=== PATIENT | male | born 1980 ===

== ENCOUNTER 2018-01-24 14:14 | Emergency (ER) | payer OTHER ==
[2018-01-24 14:28] VITALS: RESP 20
[2018-01-24] MEDS ORDERED: DiphenhydrAMINE 50 mg/ml Inj IVP STA (15:16)
[2018-01-24] MEDS ORDERED: DiphenhydrAMINE 50 mg/ml Inj ONE (15:41)
[2018-01-24 15:42] LABS: BASO # 0.1 K/uL (0.0-0.2); EOS # 0.1 K/uL (0.0-0.7); EOS % 1.3 % (0.0-4.0); HEMOGLOBIN 13.7 g/dL (12.0-18.0); LYMPH # 2.2 K/uL (1.0-4.3); LYMPH % 27.7 % (20.0-40.0); MEAN CELL VOLUME 88.1 fL (80.0-94.0); MEAN CORPUSCULAR HEMOGLOBIN 29.9 pg (27.0-31.0); MEAN PLATELET VOLUME 8.3 fL (7.2-11.7); MONO # 0.8 K/uL (0.0-0.8); MONO % 10.4 % (0.0-10.0); NEUT # 4.7 K/uL (1.8-7.0); NEUT % 59.6 % (50.0-75.0); NRBC % 0.1 % (0.0-2.0); RBC 4.58 Mil/uL (4.40-5.90); RED CELL DISTRIBUTION WIDTH 13.6 % (11.5-14.5)
[2018-01-24 15:55] LABS: ALB/GLOB RATIO 1.4 (1.0-2.1); ALBUMIN 4.3 g/dL (3.5-5.0); ALT/SGPT 37 U/L (21-72); AST/SGOT 34 U/L (17-59); BLOOD UREA NITROGEN 12 mg/dL (9-20); CALCIUM 9.7 mg/dl (8.6-10.4); GFR NON-AFRICAN AMERICAN > 60
--- NOTE | 2018-01-24 16:04 | CT ---
Date of service: 01/24/2018 PROCEDURE: CT HEAD WITHOUT CONTRAST. HISTORY: head injury 1 week ago, vomiting, r/o bleed COMPARISON: None available. TECHNIQUE: Axial computed tomography images were obtained through the head/brain without intravenous contrast. Radiation dose: Total exam DLP = 989.98 mGy-cm. This CT exam was performed using one or more of the following dose reduction techniques: Automated exposure control, adjustment of the mA and/or kV according to patient size, and/or use of iterative reconstruction technique. FINDINGS: HEMORRHAGE: No intracranial hemorrhage. BRAIN: No mass effect or edema. No atrophy or chronic microvascular ischemic changes. VENTRICLES: Unremarkable. No hydrocephalus. CALVARIUM: Unremarkable. PARANASAL SINUSES: Unremarkable as visualized. No significant inflammatory changes. MASTOID AIR CELLS: Unremarkable as visualized. No inflammatory changes. OTHER FINDINGS: None. IMPRESSION: Normal CT of the Head. No intracranial hemorrhage.
[2018-01-24 17:01] VITALS: BP 112/72; PULSE 75; TEMP 98.6; O2SAT 100
--- NOTE | 2018-01-24 17:12 | C.PDOC ---
History Of Present Illness 37 y/o male presents to the ED for evaluation of head injury. Patient states that a heavy 2x4 fell onto the right side of his head 1 week ago. He currently complains of a headache that began after the fall. Reports the headache has persisted, prompting him to come in for evaluation. Patient also reports associated nausea, with 1 episode of vomiting. Otherwise denies any LOC, dizziness, visual changes, chest pain, SOB, numbness, tingling, or extremity weakness. No other injuries were sustained. - HPI Time Seen by Provider: 01/24/18 14:45 Chief Complaint (Nursing): Trauma History Per: Patient History/Exam Limitations: no limitations Injury Occurred (Timing): Days Ago: (7) Location Of Injury: Right: Head Past Medical History Reviewed: Historical Data, Nursing Documentation, Vital Signs Vital Signs: Last Vital Signs Temp 98.6 F 01/24/18 17:00 Pulse 75 01/24/18 17:00 Resp 20 01/24/18 17:00 BP 112/72 01/24/18 17:00 Pulse Ox 100 01/24/18 18:33 - Medical History PMH: No Chronic Diseases Surgical History: No Surg Hx Family History: States: No Known Family Hx - Social History Hx Tobacco Use: No Hx Alcohol Use: No Hx Substance Use: No - Immunization History Hx Tetanus Toxoid Vaccination: Yes Hx Influenza Vaccination: No Hx Pneumococcal Vaccination: No Review Of Systems Except As Marked, All Systems Reviewed And Found Negative. Constitutional: Negative for: Fever, Chills Eyes: Negative for: Vision Change Cardiovascular: Negative for: Chest Pain Respiratory: Negative for: Shortness of Breath Gastrointestinal: Positive for: Nausea, Vomiting. Negative for: Abdominal Pain Musculoskeletal: Negative for: Neck Pain, Back Pain Skin: Negative for: Lesions Neurological: Positive for: Headache. Negative for: Weakness, Numbness, Incoordination, Change in Speech, Confusion, Dizziness Physical Exam - Physical Exam Appears: Non-toxic, No Acute Distress Skin: Normal Color, Warm, Dry Head: Normacephalic, Swelling (small area of swelling and tenderness to the right parietal scalp), No Laceration Eye(s): bilateral: Normal Inspection (no nystagmus), PERRL, EOMI Ear(s): Bilateral: Normal Nose: Normal Oral Mucosa: Moist Neck: Normal ROM, Supple Chest: Symmetrical Cardiovascular: Rhythm Regular, No Murmur Respiratory: Normal Breath Sounds, No Rales, No Rhonchi, No Wheezing Gastrointestinal/Abdominal: Soft, No Tenderness, No Distention Back: Normal Inspection, No CVA Tenderness, No Vertebral Tenderness Extremity: Bilateral: Atraumatic, Normal Color And Temperature, Normal ROM Pulses: Left Dorsalis Pedis: Normal, Right Dorsalis Pedis: Normal Neurological/Psych: Oriented x3, Normal Speech, Normal Cranial Nerves, Cerebellar Signs (normal), Normal Motor, Normal Sensation, Other (No focal deficits) Gait: Steady ED Course And Treatment - Laboratory Results Result Diagrams: 01/24/18 15:38 01/24/18 15:38 O2 Sat by Pulse Oximetry: 100 (RA) Pulse Ox Interpretation: Normal - CT Scan/US Head CT Other Rad Studies (CT/US): Read By Radiologist, Radiology Report Reviewed CT/US Interpretation: Accession No. : [id number]. Patient Name / ID : JESUSITA WALLIS / [id number]. Exam Date : 01/24/2018 15:48:14 ( Approved ). Study Comment : Sex / Age : M / 37Y. Creator : Zackary Rivera MD. Dictator : Zackary Rivera MD. Esl Professor : Director Social Service : Zackary Rivera MD. Approver2 : Report Date : 01/24/2018 16:02:34. My Comment : . Date of service: 01/24/2018. PROCEDURE: CT HEAD WITHOUT CONTRAST. HISTORY: head injury 1 week ago, vomiting, r/o bleed. COMPARISON: None available. TECHNIQUE: Axial computed tomography images were obtained through the head/ brain without intravenous contrast. Radiation dose: Total exam DLP = 989.98 mGy-cm. This CT exam was performed using one or more of the following dose reduction techniques: Automated exposure control, adjustment of the mA and/or kV according to patient size, and/or use of iterative reconstruction technique. FINDINGS: HEMORRHAGE: No intracranial hemorrhage. BRAIN: No mass effect or edema. No atrophy or chronic microvascular ischemic changes. VENTRICLES: Unremarkable. No hydrocephalus. CALVARIUM: Unremarkable. PARANASAL SINUSES: Unremarkable as visualized. No significant inflammatory changes. MASTOID AIR CELLS: Unremarkable as visualized. No inflammatory changes. OTHER FINDINGS: None. IMPRESSION: Normal CT of the Head. No intracranial hemorrhage. Medical Decision Making Medical Decision Making: Initial Plan: --CMP --CBC --Benadryl 12.5 mg IVP --Reglan 10 mg IVP --CT Head w/o contrast Progress/Updates: Labs reviewed with patient. Informed patient of normal CT scan. On reassessment, patient is resting comfortably, and is in no acute distress. Patient was instructed to follow up with physician/clinic in 1-2 days for further evaluation. Disposition - Disposition Referrals: [facility] [place] [Outside] Disposition: HOME/ ROUTINE Disposition Time: 17:05 Condition: STABLE Additional Instructions: Follow up with the medical doctor within 1-2 days, Return if worsened. Prescriptions: Metoclopramide [Reglan] 1 tab PO TID PRN #25 tab PRN Reason: Nausea/Vomiting Naproxen [Naprosyn] 500 mg PO BID #20 tab Instructions: Concussion, Adult (DC) Forms: [employer] Connect (Chinese) - Clinical Impression Clinical Impression: Concussion injury of brain - PA / STOCK RECEIVER / Resident Statement MD/DO has reviewed & agrees with the documentation as recorded. - Scribe Statement The provider has reviewed the documentation as recorded by the Scribe (Deborah Saunders) All medical record entries made by the Scribe were at my direction and personally dictated by me. I have reviewed the chart and agree that the record accurately reflects my personal performance of the history, physical exam, medical decision making, and the department course for this patient. I have also personally directed, reviewed, and agree with the discharge instructions and disposition.
== END 2018-01-24 17:22 | disposition home or self-care (01) ==
LOC: C.ER 14:14
DX: S06.0X0A Concussion without loss of consciousness, initial encounter (principal); W22.8XXA Striking against or struck by other objects, initial encounter
CPT/HCPCS: 70450; 80053; 85025; 96374; 96375; 99285; J1200; J2765